=== PATIENT | female | born 1965 | race African-American/Black ===

== ENCOUNTER 2019-01-17 14:59 | Emergency (ER) | payer MEDICAID ==
[~2019-01-17] VITALS: Ht 165.1 cm; Wt 53.0 kg
[2019-01-17 15:42] VITALS: BP 158/89
== END 2019-01-17 16:59 | disposition home or self-care (01) ==
LOC: ER 14:59
DX: F10.129 Alcohol abuse with intoxication, unspecified (principal); Y90.9 Presence of alcohol in blood, level not specified
CPT/HCPCS: 99283; Z7610